=== PATIENT | female | born 1995 | race Hispanic/Latino ===

== ENCOUNTER 2023-04-19 10:11 | Emergency (ER) | payer BC ==
[~2023-04-19] VITALS: Ht 165.1 cm; Wt 86.2 kg
[2023-04-19 11:06] LABS: HCG,QUALITATIVE URINE NEGATIVE (NEGATIVE)
[2023-04-19 11:09] LABS: APPEARANCE,URINE CLEAR (CLEAR); BILIRUBIN,URINE NEGATIVE (NEGATIVE); COLOR,URINE YELLOW (YELLOW); GLUCOSE, URINE (UA) >=1000 mg/dL (NEGATIVE); KETONES,URINE 10 mg/dL (NEGATIVE); LEUKOCYTE ESTERASE ,URINE 25 Leu/uL (NEGATIVE); NITRATE,URINE NEGATIVE (NEGATIVE); OCCULT BLOOD,URINE NEGATIVE (NEGATIVE); PROTEIN,URINE 30 mg/dL (NEGATIVE); UROBILINOGEN,URINE 0.2 mg/dL (0.2-1.0)
[2023-04-19 11:14] LABS: HEMATOCRIT 44.8 % (36-48); MEAN CORPUSCULAR HEMOGLOBIN 26.6 pg (27.0-33.0); MEAN CORPUSCULAR VOLUME 80.4 fL (79-99); RED BLOOD CELL COUNT(AUTO) 5.57 MIL/uL (4.00-5.50); RED CELL DISTRIBUTION WIDTH 12.8 % (11.0-15.5); WHITE BLOOD COUNT (AUTO) 6.3 K/uL (4.8-10.8)
[2023-04-19 11:15] LABS: CREATININE 0.8 mg/dL (0.5-1.5); POTASSIUM 3.8 mmol/L (3.5-5.1)
[2023-04-19 11:17] LABS: MUCUS,URINE RARE LPF (None Seen); SQUAMOUS EPITHELIAL CELL,UR FEW /HPF (0-2)
[2023-04-19 11:20] LABS: ALBUMIN 3.6 g/dL (3.5-5.0); TOTAL PROTEIN, SERUM 7.8 g/dL (6.0-8.3)
[2023-04-19] MEDS ORDERED: 0.9%NACL 1000ML 1,000 ML IV ONE (11:30)
[2023-04-19] MEDS ORDERED: INSULIN HUMULIN R 100 UNIT/ML 3ML IV ONE (11:30)
[2023-04-19] MEDS ORDERED: KETOROLAC 30MG VIAL (30MG/ML) IVP ONE (13:30)
[2023-04-19] MEDS ORDERED: FLUCONAZOLE 100 MG TAB PO ONE (13:30)
[2023-04-19] MEDS ORDERED: PHEN-847 PO (13:44)
[2023-04-19] MEDS ORDERED: SULF1TAB42 PO (13:44)
[2023-04-19] MEDS ORDERED: CEFTRIAXONE 1G VIAL IVPB ONE (14:00)
[2023-04-19 14:35] VITALS: BP 125/86
[2023-04-20] MEDS ORDERED: PHEN-847 PO (00:07)
== END 2023-04-19 14:53 | disposition home or self-care (01) ==
LOC: EDH 10:11
DX: N39.0 Urinary tract infection, site not specified (principal); R73.9 Hyperglycemia, unspecified; B37.31 Acute candidiasis of vulva and vagina; J45.909 Unspecified asthma, uncomplicated; Z79.899 Other long term (current) drug therapy; Z98.890 Other specified postprocedural states
CPT/HCPCS: 99284; 96374; 96361; 96375; 80053; 85027; 82948; 87797; 87486; 81001; 81025; 36415; J1815; J7030; J0696; J1885

== ENCOUNTER 2023-04-19 23:45 | Emergency (ER) | payer BC ==
[~2023-04-19] VITALS: Ht 165.1 cm; Wt 84.8 kg
[~2023-04-19 23:45] MED LIST: PHEN-847 PO; SULF1TAB42 PO
[2023-04-19 23:46] VITALS: BP 148/94
[2023-04-20] MEDS ORDERED: PHEN-847 PO (00:07)
== END 2023-04-20 00:45 | disposition left against medical advice (07) ==
LOC: EDH 23:45
DX: N39.0 Urinary tract infection, site not specified (principal); J45.909 Unspecified asthma, uncomplicated; Z79.899 Other long term (current) drug therapy; Z98.890 Other specified postprocedural states; Z90.79 Acquired absence of other genital organ(s)
CPT/HCPCS: 99282